=== PATIENT | male | born 1995 | race African-American/Black ===

== ENCOUNTER 2019-05-13 00:02 | Emergency (ER) | payer MEDICARE, MEDICAID ==
[~2019-05-13] VITALS: Ht 177.8 cm; Wt 72.0 kg
[2019-05-13] MEDS ORDERED: HYDROCODONE/ACETAMINOPHEN 5/325MG TABLET PO ONE (03:30)
[2019-05-13 05:39] VITALS: BP 114/71
== END 2019-05-13 05:40 | disposition home or self-care (01) ==
LOC: ER 00:02
DX: S62.397A Other fracture of fifth metacarpal bone, left hand, initial encounter for closed fracture (principal); Y07.59 Other non-family member, perpetrator of maltreatment and neglect; Y04.0XXA Assault by unarmed brawl or fight, initial encounter; Y93.89 Activity, other specified; Y92.89 Other specified places as the place of occurrence of the external cause
CPT/HCPCS: 29125; 73130; 99283

== ENCOUNTER 2020-07-07 10:16 | Emergency (ER) | payer MEDICARE, MEDICAID ==
[~2020-07-07] VITALS: Ht 180.3 cm; Wt 71.6 kg
[2020-07-07 10:34] VITALS: BP 130/92
[2020-07-07] MEDS ORDERED: ACETAMINOPHEN WITH CODEINE 300/30MG TABLET PO ONE (12:15)
[2020-07-07] MEDS ORDERED: IBUPROFEN 600MG TABLET PO ONE (12:30)
== END 2020-07-07 12:44 | disposition home or self-care (01) ==
LOC: ER 10:16
DX: K02.9 Dental caries, unspecified (principal)
CPT/HCPCS: 99283

== ENCOUNTER 2021-10-12 01:09 | Emergency (ER) | payer MEDICARE, MEDICAID ==
[~2021-10-12] VITALS: Ht 177.8 cm; Wt 81.0 kg
[2021-10-12] MEDS ORDERED: IBUPROFEN 600MG TABLET PO STA (01:25)
[2021-10-12] MEDS ORDERED: NAPR-681 PO (03:08)
[2021-10-12] MEDS ORDERED: CYCL5TAB PO (03:08)
[2021-10-12 03:35] VITALS: BP 140/84
== END 2021-10-12 03:35 | disposition home or self-care (01) ==
LOC: ER 01:27
DX: M25.511 Pain in right shoulder (principal)
CPT/HCPCS: 73030; 99283